=== PATIENT | female | born 1995 | race African-American/Black ===

== ENCOUNTER 2016-11-20 22:14 | Emergency (ER) | payer MEDICAID ==
[~2016-11-20] VITALS: Ht 175.3 cm; Wt 78.0 kg
[~2016-11-20 22:14] MED LIST: BACT800T5 PO; DOXY100C PO
[2016-11-20 22:16] VITALS: BP 125/72; PULSE 77; RESP 16; TEMP 97.4; O2SAT 100
--- NOTE | 2016-11-20 22:40 | PD ---
Physical Exam Date Seen by Provider: Nov 20, 2016 Time Seen by Provider: 22:38 Narrative 21 y/o female with one day Hx. Nausea and Vomiting. LMP 10-24-2016. Denies fever. No Diarrhea. Urine and POC preg ordered. Vital Signs reviewed. Patient is Stable and awaiting Bed Placement. Data Data Last Documented VS Vital Signs Date Time Temp Pulse Resp B/P (MAP) Pulse Ox O2 Delivery O2 Flow Rate FiO2 11/20/16 22:16 97.4 77 16 125/72 (89) 100 Orders Orders Urinalysis - C+S If Indicated (11/20/16 22:40) Ed Urine Pregnancytest Poc (11/20/16 22:40) MDM Medical Record Reviewed: Yes Supervised Visit with ANTONIO: Yes Condition: Stable Feng Draper Nov 20, 2016 22:40
[2016-11-20] MEDS ORDERED: SODIUM CHLOR 0.9% 1000 ML INJ 1,000 ML IV SCH (22:58)
[2016-11-20] MEDS ORDERED: MORPHINE SULFATE 4 MG/ML INJ IV PUSH ONE (23:00)
[2016-11-20] MEDS ORDERED: SODIUM CHLORIDE 0.9% FLUSH 10 ML FLUSH IV FLUSH PRN (23:00)
[2016-11-20] MEDS ORDERED: DICYCLOMINE HCL 10 MG CAP PO ONE (23:00)
[2016-11-20] MEDS ORDERED: ONDANSETRON HCL 4 MG/2 ML VIAL IVP ONE (23:00)
--- NOTE | 2016-11-20 23:06 | PD ---
HPI Chief Complaint: GI Complaint Time Seen by Provider: 22:47 Travel History International Travel<30 days: No Contact w/Intl Traveler<30days: No Traveled to known affect area: No History of Present Illness HPI The patient is a 21-year-old Norah female who presents emergency department for nausea, vomiting, and abdominal cramping. The patient states her symptoms started at approximately 4 PM earlier today while she was eating chicken wings. The patient complains of nausea, vomiting, with a few episodes of loose and watery diarrhea. She also complains of lower abdominal cramping. The patient's last menstrual cycle was October 14, 2016, however, she does know some irregular spotting this month. She denies . She denies a current fever, chills, or sweats. Symptoms are moderate, there are no current alleviating or exacerbating factors. PFSH Past Medical History Medical History: Denies Significant Hx Diminished Hearing: No ?: Not LMP: 10/24/16 : 2 Para: 2 Past Surgical History Surgical History: No Previous Surgery Social History Alcohol Use: No Tobacco Use: No Substance Use: No Allergies-Medications (Allergen,Severity, Reaction): Coded Allergies: No Known Allergies (Unverified , 11/20/16) Reported Meds & Prescriptions Reported Meds & Active Scripts Active Bactrim DS (Sulfamethoxazole-Trimethoprim) 800-160 Mg Tab 1 Tab PO BID Doxycycline Hyclate 100 Mg Cap 100 Mg PO BID Review of Systems Except as stated in HPI: all other systems reviewed are Neg General / Constitutional: No: Fever Cardiovascular: No: Chest Pain or Discomfort Respiratory: No: Shortness of Breath Gastrointestinal: Positive: Nausea, Vomiting, Diarrhea, Abdominal Pain ( cramping) Genitourinary: No: Dysuria Neurologic: No: Dizziness Physical Exam Narrative GENERAL: Awake, alert, nontoxic-appearing 21-year-old female who appears her stated age and is in no acute respiratory distress. SKIN: Focused skin assessment warm/dry. HEAD: Atraumatic. Normocephalic. EYES: Pupils equal and round. No scleral icterus. No injection or drainage. ENT: No nasal bleeding or discharge. Mucous membranes pink and moist. NECK: Trachea midline. No JVD. CARDIOVASCULAR: Regular rate and rhythm. No murmur appreciated. RESPIRATORY: No accessory muscle use. Clear to auscultation. Breath sounds equal bilaterally. GASTROINTESTINAL: Abdomen soft, no rebound tenderness, guarding, rigidity. Negative McBurney's. Negative Nguyen's. MUSCULOSKELETAL: No obvious deformities. No clubbing. No cyanosis. No edema. NEUROLOGICAL: Awake and alert. No obvious cranial nerve deficits. Motor grossly within normal limits. Normal speech. PSYCHIATRIC: Appropriate mood and affect; insight and judgment normal. Data Data Last Documented VS Vital Signs Date Time Temp Pulse Resp B/P (MAP) Pulse Ox O2 Delivery O2 Flow Rate FiO2 11/20/16 23:41 66 18 111/67 (82) 100 Room Air 11/20/16 22:16 97.4 Orders Orders Urinalysis - C+S If Indicated (11/20/16 22:40) Ed Urine Pregnancytest Poc (11/20/16 22:40) Complete Blood Count With Diff (11/20/16 22:58) Comprehensive Metabolic Panel (11/20/16 22:58) Lipase (11/20/16 22:58) Iv Access Insert/Monitor (11/20/16 22:58) Ecg Monitoring (11/20/16 22:58) Oximetry (11/20/16 22:58) Morphine Inj (Morphine Inj) (11/20/16 23:00) Ondansetron Inj (Zofran Inj) (11/20/16 23:00) Sodium Chlor 0.9% 1000 Ml Inj (Ns 1000 M (11/20/16 22:58) Sodium Chloride 0.9% Flush (Ns Flush) (11/20/16 23:00) Dicyclomine (Bentyl) (11/20/16 23:00) Beta Hcg (Quant/Titer) (11/20/16 23:09) Labs Laboratory Tests Test 11/20/16 23:09 11/21/16 00:20 White Blood Count 10.3 TH/MM3 Red Blood Count 3.99 MIL/MM3 Hemoglobin 11.8 GM/DL Hematocrit 35.6 % Mean Corpuscular Volume 89.3 FL Mean Corpuscular Hemoglobin 29.5 PG Mean Corpuscular Hemoglobin Concent 33.1 % Red Cell Distribution Width 12.8 % Platelet Count 276 TH/MM3 Mean Platelet Volume 8.3 FL Neutrophils (%) (Auto) 46.1 % Lymphocytes (%) (Auto) 46.7 % Monocytes (%) (Auto) 5.9 % Eosinophils (%) (Auto) 0.7 % Basophils (%) (Auto) 0.6 % Neutrophils # (Auto) 4.7 TH/MM3 Lymphocytes # (Auto) 4.8 TH/MM3 Monocytes # (Auto) 0.6 TH/MM3 Eosinophils # (Auto) 0.1 TH/MM3 Basophils # (Auto) 0.1 TH/MM3 CBC Comment DIFF FINAL Differential Comment Blood Urea Nitrogen 6 MG/DL Creatinine 0.84 MG/DL Random Glucose 73 MG/DL Total Protein 7.6 GM/DL Albumin 3.8 GM/DL Calcium Level 9.1 MG/DL Alkaline Phosphatase 73 U/L Aspartate Amino Transf (AST/SGOT) 18 U/L Alanine Aminotransferase (ALT/SGPT) 17 U/L Total Bilirubin 0.4 MG/DL Sodium Level 138 MEQ/L Potassium Level 3.3 MEQ/L Chloride Level 107 MEQ/L Carbon Dioxide Level 23.9 MEQ/L Anion Gap 7 MEQ/L Estimat Glomerular Filtration Rate 104 ML/MIN Lipase 121 U/L Human Chorionic Gonadotropin, Quant 1636 MIU/ML Urine Color YELLOW Urine Turbidity HAZY Urine pH 6.5 Urine Specific [place] 1.034 Urine Protein TRACE mg/dL Urine Glucose (UA) TRACE mg/dL Urine Ketones NEG mg/dL Urine Occult Blood NEG Urine Nitrite NEG Urine Bilirubin NEG Urine Urobilinogen 4.0 MG/DL Urine Leukocyte Esterase MOD Urine RBC 6 /hpf Urine WBC 6 /hpf Urine Squamous Epithelial Cells 15 /hpf Urine Renal Epithelial Cells <1 /hpf Urine Calcium Oxalate Crystals OCC /hpf Urine Mucus FEW /lpf Microscopic Urinalysis Comment CULT NOT INDICATED MDM Medical Decision Making Medical Screen Exam Complete: Yes Emergency Medical Condition: Yes Medical Record Reviewed: Yes Interpretation(s) Laboratory Tests Test 11/20/16 23:09 11/21/16 00:20 White Blood Count 10.3 TH/MM3 Red Blood Count 3.99 MIL/MM3 Hemoglobin 11.8 GM/DL Hematocrit 35.6 % Mean Corpuscular Volume 89.3 FL Mean Corpuscular Hemoglobin 29.5 PG Mean Corpuscular Hemoglobin Concent 33.1 % Red Cell Distribution Width 12.8 % Platelet Count 276 TH/MM3 Mean Platelet Volume 8.3 FL Neutrophils (%) (Auto) 46.1 % Lymphocytes (%) (Auto) 46.7 % Monocytes (%) (Auto) 5.9 % Eosinophils (%) (Auto) 0.7 % Basophils (%) (Auto) 0.6 % Neutrophils # (Auto) 4.7 TH/MM3 Lymphocytes # (Auto) 4.8 TH/MM3 Monocytes # (Auto) 0.6 TH/MM3 Eosinophils # (Auto) 0.1 TH/MM3 Basophils # (Auto) 0.1 TH/MM3 CBC Comment DIFF FINAL Differential Comment Blood Urea Nitrogen 6 MG/DL Creatinine 0.84 MG/DL Random Glucose 73 MG/DL Total Protein 7.6 GM/DL Albumin 3.8 GM/DL Calcium Level 9.1 MG/DL Alkaline Phosphatase 73 U/L Aspartate Amino Transf (AST/SGOT) 18 U/L Alanine Aminotransferase (ALT/SGPT) 17 U/L Total Bilirubin 0.4 MG/DL Sodium Level 138 MEQ/L Potassium Level 3.3 MEQ/L Chloride Level 107 MEQ/L Carbon Dioxide Level 23.9 MEQ/L Anion Gap 7 MEQ/L Estimat Glomerular Filtration Rate 104 ML/MIN Lipase 121 U/L Human Chorionic Gonadotropin, Quant 1636 MIU/ML Urine Color YELLOW Urine Turbidity HAZY Urine pH 6.5 Urine Specific [place] 1.034 Urine Protein TRACE mg/dL Urine Glucose (UA) TRACE mg/dL Urine Ketones NEG mg/dL Urine Occult Blood NEG Urine Nitrite NEG Urine Bilirubin NEG Urine Urobilinogen 4.0 MG/DL Urine Leukocyte Esterase MOD Urine RBC 6 /hpf Urine WBC 6 /hpf Urine Squamous Epithelial Cells 15 /hpf Urine Renal Epithelial Cells <1 /hpf Urine Calcium Oxalate Crystals OCC /hpf Urine Mucus FEW /lpf Microscopic Urinalysis Comment CULT NOT INDICATED Differential Diagnosis Differential diagnosis includes gastroenteritis, gastritis, food poisoning, enteritis, colitis, , UTI, pancreatitis, hepatitis. Narrative Course IV was established, labs are drawn and sent, and the patient was placed on cardiac telemetry monitoring and continuous pulse oximetry monitoring. The patient was administered Zofran and IV fluids. Bedside UA test was obtained, was positive. Therefore, quantitative beta hCG was sent to lab. Beta hCG was positive, greater than 1000. Otherwise, labs are unremarkable. The patient is a , she has no current pain, I doubt ectopic . She is advised to take a vitamin daily, plenty of fluids to stay hydrated, Zofran as needed, to follow-up with her funds development director and/or primary physician. Diagnosis Primary Impression: Qualified Codes: Z34.90 - Encounter for supervision of normal , unspecified, unspecified trimester Additional Impression: Nausea & vomiting Qualified Codes: R11.2 - Nausea with vomiting, unspecified Patient Instructions: General Instructions Additional Instructions: Zofran as needed. Follow-up with your funds development director. Take a vitamin daily. Return if symptoms worsen or progress. Med/Other Pt SpecificInfo: Prescription(s) given Scripts Ondansetron Odt (Zofran Odt) 4 Mg Tab 4 MG SL Q6HR Y for Nausea/Vomiting, #10 TAB 0 Refills Prov: Michael Cm MD 11/21/16 Disposition: 01 DISCHARGE HOME Condition: Stable Michael Cm MD Nov 20, 2016 23:06
[2016-11-20 23:19] VITALS: O2SAT 100
[2016-11-20 23:38] LABS: AUTOMATED NEUTROPHIL # 4.7 TH/MM3 (1.8-7.7); BASOPHIL # 0.1 TH/MM3 (0-0.2); BASOPHIL % 0.6 % (0.0-2.0); EOSINOPHIL # 0.1 TH/MM3 (0-0.4); EOSINOPHIL % 0.7 % (0.0-4.0); HEMATOCRIT 35.6 % (35.0-46.0); HEMO FLAGS DIFF FINAL; LYMPH % 46.7 % (9.0-44.0); LYMPHOCYTE # 4.8 TH/MM3 (1.0-4.8); MEAN CELL VOLUME 89.3 FL (80.0-100.0); MEAN CORPUSCULAR HEMOGLOBIN 29.5 PG (27.0-34.0); MEAN CORPUSCULAR HGB CONC 33.1 % (32.0-36.0); MONO % 5.9 % (0.0-8.0); NEUT % 46.1 % (16.0-70.0); PLATELET COUNT 276 TH/MM3 (150-450); RED BLOOD COUNT 3.99 MIL/MM3 (4.00-5.30); RED CELL DISTRIBUTION WIDTH 12.8 % (11.6-17.2); WHITE BLOOD COUNT 10.3 TH/MM3 (4.0-11.0)
[2016-11-20 23:41] VITALS: BP 111/67; PULSE 66; RESP 18; O2SAT 100
[2016-11-21 00:14] LABS: ANION GAP 7 MEQ/L (5-15); AST (GOT) 18 U/L (15-37); BICARBONATE 23.9 MEQ/L (21.0-32.0); BLOOD UREA NITROGEN 6 MG/DL (7-18); CHLORIDE 107 MEQ/L (98-107); GLOMERULAR FILTRATION RATE 104 ML/MIN (>89); POTASSIUM 3.3 MEQ/L (3.5-5.1); SODIUM (NA) 138 MEQ/L (136-145)
[2016-11-21 00:28] LABS: ALKALINE PHOSPHATASE 73 U/L (45-117); ALT (GPT) 17 U/L (10-53); BETA HCG QUANT 1636 MIU/ML (0-5); TOTAL BILIRUBIN ADULT 0.4 MG/DL (0.2-1.0)
[2016-11-21 00:37] LABS: BLOOD, URINE NEG (NEG); CALCIUM OXALATE CRYSTALS,URINE OCC /hpf; GLUCOSE,URINE TRACE mg/dL (NEG); KETONE, URINE NEG (NEG); MUCUS URINE FEW /lpf (OCC); NITRITE,URINE NEG (NEG); PH, URINE 6.5 (5.0-8.5); RENAL EPITHELIAL CELLS <1 /hpf; SQUAMOUS EPITHELIAL CELL URINE 15 /hpf (0-5); URINE COLOR YELLOW (YELLW/STRAW)
[2016-11-21 00:49] LABS: COMMENT (UR) CULT NOT INDICATED; CULTURE IF INDICATED CULT NOT INDICATED
[2016-11-21] MEDS ORDERED: ZOFR4TAB3 SL (01:03)
== END 2016-11-21 01:31 | disposition home or self-care (01) ==
LOC: NEPE 22:14
DX: R11.2 Nausea with vomiting, unspecified (principal); R10.9 Unspecified abdominal pain
CPT/HCPCS: 80053; 81001; 83690; 84702; 84703; 85025; 96374; 99284; J2405; J7030

== ENCOUNTER 2017-01-25 15:51 | Emergency (ER) | payer MEDICAID ==
[~2017-01-25] VITALS: Ht 175.3 cm; Wt 72.0 kg
[~2017-01-25 15:51] MED LIST changes: +ZOFR4TAB3 SL
[2017-01-25 15:55] VITALS: BP 122/66; PULSE 84; RESP 16; TEMP 97.9; O2SAT 98
[2017-01-25 16:56] LABS: BILIRUBIN, URINE NEG (NEG); BLOOD, URINE NEG (NEG); GLUCOSE,URINE TRACE mg/dL (NEG); KETONE, URINE NEG (NEG); MUCUS URINE FEW /lpf (OCC); NITRITE,URINE NEG (NEG); SQUAMOUS EPITHELIAL CELL URINE 4 /hpf (0-5); URINE COLOR YELLOW (YELLW/STRAW); URINE LEUKOCYTE ESTERASE NEG (NEG)
--- NOTE | 2017-01-25 17:19 | PD ---
HPI Chief Complaint: Abdominal Pain Time Seen by Provider: 16:16 Travel History International Travel<30 days: No Contact w/Intl Traveler<30days: No Traveled to known affect area: No History of Present Illness HPI 22-year-old female presents to the emergency Department with complaint of foul-smelling vaginal odor times one week. Last menstrual period was around October 14. She doesn't know how far along she is. She has not followed up with public improvement inspector. Reports 2 days of vaginal bleeding one week ago. Denies vaginal bleeding at this time. Reports some vaginal itching. Denies vaginal lesions. Reports abdominal cramping and low back pain. Denies dysuria, urgency, frequency, hematuria. Denies diarrhea. Denies fevers. Reports vomiting throughout the . Planned on having an in the beginning but has no plan to abort at this time. This is her third and she has 2 living children. Has taken Tylenol for symptom management. Symptoms are moderate in severity. Unknown exposure to any STI/STDs. No known allergies. Denies past medical history. Denies current medications. Has no other medical complaints. No other modifying factors or associated signs and symptoms. [facility] Past Medical History Medical History: Denies Significant Hx Diminished Hearing: No ?: LMP: AUGUST 2016 : 2 Para: 2 Past Surgical History Surgical History: No Previous Surgery Social History Alcohol Use: No Tobacco Use: No Substance Use: No Allergies-Medications (Allergen,Severity, Reaction): Coded Allergies: No Known Allergies (Unverified , 01/25/17) Reported Meds & Prescriptions Reported Meds & Active Scripts Active Review of Systems Except as stated in HPI: all other systems reviewed are Neg Physical Exam Narrative GENERAL: Well-nourished, well-developed black female female patient, in no acute distress; afebrile, nontoxic-appearing SKIN: Warm and dry. HEAD: Atraumatic. Normocephalic. EYES: Pupils equal and round. No scleral icterus. No injection or drainage. ENT: Mucous membranes pink and moist. NECK: Trachea midline. No lymphadenopathy. CARDIOVASCULAR: Regular rate. RESPIRATORY: No accessory muscle use. GASTROINTESTINAL: Abdomen soft, non-tender, nondistended. Bilateral pelvic region nontender to palpation. Hepatic and splenic margins not palpable. No guarding, rigidity, rebound tenderness. PELVIC: Exam done in the presence of a nurse. Speculum exam reveals edematous and erythematous cervix with foul smelling mucopurulent, white cottage-cheese discharge. Bimanual exam reveals no palpable masses or adnexa tenderness, no uterine tenderness. Positive cervical motion tenderness. MUSCULOSKELETAL: No obvious deformities. No clubbing. No cyanosis. No edema. NEUROLOGICAL: Awake and alert. No obvious cranial nerve deficits. Motor grossly within normal limits. Normal speech. PSYCHIATRIC: Appropriate mood and affect; insight and judgment normal. Data Data Last Documented VS Vital Signs Date Time Temp Pulse Resp B/P (MAP) Pulse Ox O2 Delivery O2 Flow Rate FiO2 01/25/17 18:00 80 14 120/54 (76) 97 Room Air 01/25/17 15:55 97.9 Orders Orders Urinalysis - C+S If Indicated (01/25/17 16:10) Ed Urine Pregnancytest Poc (01/25/17 16:10) Gc And Chlamydia Pcr (01/25/17 16:16) Wet Prep Profile (01/25/17 16:16) Beta Hcg (Quant/Titer) (01/25/17 17:19) Acetaminophen (Tylenol) (01/25/17 17:30) Heart Tones (01/25/17 18:01) Azithromycin Powd Pack (Zithromax Powd P (01/25/17 18:30) Ceftriaxone Inj (Rocephin Inj) (01/25/17 18:30) Lidocaine 1% Inj (50 Ml) (Xylocaine 1% I (01/25/17 18:30) Ondansetron Odt (Zofran Odt) (01/25/17 18:45) Iv Access Insert/Monitor (01/25/17 19:07) Sodium Chloride 0.9% Flush (Ns Flush) (01/25/17 19:15) Azithromycin Inj (Zithromax Inj) (01/25/17 19:15) Ed Discharge Order (01/25/17 19:11) Azithromycin (Zithromax) (01/25/17 19:15) Labs Laboratory Tests Test 01/25/17 16:40 01/25/17 17:05 Urine Color YELLOW Urine Turbidity CLEAR Urine pH 6.0 Urine Specific [place] 1.028 Urine Protein TRACE mg/dL Urine Glucose (UA) TRACE mg/dL Urine Ketones NEG mg/dL Urine Occult Blood NEG Urine Nitrite NEG Urine Bilirubin NEG Urine Urobilinogen 2.0 MG/DL Urine Leukocyte Esterase NEG Urine RBC LESS THAN 1 /hpf Urine WBC 1 /hpf Urine Squamous Epithelial Cells 4 /hpf Urine Mucus FEW /lpf Microscopic Urinalysis Comment CULT NOT INDICATED Human Chorionic Gonadotropin, Quant 32076 MIU/ML Clue Cells (Wet Prep) NONE SEEN Vaginal Trichomonas (Wet Prep) NONE SEEN Vaginal Yeast (Wet Prep) NONE SEEN MDM Medical Decision Making Medical Screen Exam Complete: Yes Emergency Medical Condition: Yes Medical Record Reviewed: Yes Differential Diagnosis Chlamydia, gonorrhea, Trichomonas, bacterial vaginosis, vaginal yeast Narrative Course 22-year-old female, approximately 13 weeks , physical exam consistent with foul-smelling vaginal discharge and cervicitis. UPT positive. 1822: heart tones 154. HCG 18424. 183: Azithromycin and Rocephin ordered for empirical treatment of cervicitis. 1842: Urinalysis with no signs of infection. Negative for clue cells, vaginal yeast, trichomoniasis. Patient vomiting the azithromycin. Zofran ordered. 1908: Dr. Munoz recommended a dose of azithromycin IV. Azithromycin IV ordered. Patient refused IV azithromycin. Azithromycin 1000 mg tabs by mouth ordered. Instructed patient to follow up public improvement inspector. Instructed patient to follow up with primary care provider. Patient verbalizes understanding and agreement with treatment plan. Patient is medically cleared and stable for discharge. Discussed reasons to return to the emergency department. Patient agrees with treatment plan. The patients vital signs are stable and the patient is stable for outpatient follow-up and treatment. Patient discharged home, stable and in no acute distress. Diagnosis Primary Impression: Qualified Codes: Z3A.13 - 13 weeks gestation of Additional Impression: Cervicitis Referrals: [facility] Primary Care Physician Patient Instructions: Cervicitis (ED), Chlamydia (ED), General Instructions, Gonorrhea (ED), (DC) Additional Instructions: Avoid sexual activity for 14 days and until your sexual partner has been evaluated and treated Inform all sexual partners within the past 3-6 months that they need to be evaluated and treated Use condoms every time you have sex Follow-up with primary care provider Follow up with public improvement inspector Return to the emergency department immediately with worsening of symptoms Med/Other Pt SpecificInfo: No Meds Exist/No RX given Disposition: DISCHARGE HOME Condition: Stable Rassi,Suzy K DOUGH MIXING MACHINE OPERATOR Jan 25, 2017 17:18
--- NOTE | 2017-01-25 17:19 | PD ---
HPI Chief Complaint: Abdominal Pain Time Seen by Provider: 16:16 Travel History International Travel<30 days: No Contact w/Intl Traveler<30days: No Traveled to known affect area: No History of Present Illness HPI 22-year-old female presents to the emergency Department with complaint of foul-smelling vaginal odor times one week. Last menstrual period was around October 14. She doesn't know how far along she is. She has not followed up with diver pumper. Reports 2 days of vaginal bleeding one week ago. Denies vaginal bleeding at this time. Reports some vaginal itching. Denies vaginal lesions. Reports abdominal cramping and low back pain. Denies dysuria, urgency, frequency, hematuria. Denies diarrhea. Denies fevers. Reports vomiting throughout the . Planned on having an in the beginning but has no plan to abort at this time. This is her third and she has 2 living children. Has taken Tylenol for symptom management. Symptoms are moderate in severity. Unknown exposure to any STI/STDs. No known allergies. Denies past medical history. Denies current medications. Has no other medical complaints. No other modifying factors or associated signs and symptoms. [facility] Past Medical History Medical History: Denies Significant Hx Diminished Hearing: No ?: LMP: AUGUST 2016 : 2 Para: 2 Past Surgical History Surgical History: No Previous Surgery Social History Alcohol Use: No Tobacco Use: No Substance Use: No Allergies-Medications (Allergen,Severity, Reaction): Coded Allergies: No Known Allergies (Unverified , 01/25/17) Reported Meds & Prescriptions Reported Meds & Active Scripts Active Review of Systems Except as stated in HPI: all other systems reviewed are Neg Physical Exam Narrative GENERAL: Well-nourished, well-developed black female female patient, in no acute distress; afebrile, nontoxic-appearing SKIN: Warm and dry. HEAD: Atraumatic. Normocephalic. EYES: Pupils equal and round. No scleral icterus. No injection or drainage. ENT: Mucous membranes pink and moist. NECK: Trachea midline. No lymphadenopathy. CARDIOVASCULAR: Regular rate. RESPIRATORY: No accessory muscle use. GASTROINTESTINAL: Abdomen soft, non-tender, nondistended. Bilateral pelvic region nontender to palpation. Hepatic and splenic margins not palpable. No guarding, rigidity, rebound tenderness. PELVIC: Exam done in the presence of a nurse. Speculum exam reveals edematous and erythematous cervix with foul smelling mucopurulent, white cottage-cheese discharge. Bimanual exam reveals no palpable masses or adnexa tenderness, no uterine tenderness. Positive cervical motion tenderness. MUSCULOSKELETAL: No obvious deformities. No clubbing. No cyanosis. No edema. NEUROLOGICAL: Awake and alert. No obvious cranial nerve deficits. Motor grossly within normal limits. Normal speech. PSYCHIATRIC: Appropriate mood and affect; insight and judgment normal. Data Data Last Documented VS Vital Signs Date Time Temp Pulse Resp B/P (MAP) Pulse Ox O2 Delivery O2 Flow Rate FiO2 01/25/17 18:00 80 14 120/54 (76) 97 Room Air 01/25/17 15:55 97.9 Orders Orders Urinalysis - C+S If Indicated (01/25/17 16:10) Ed Urine Pregnancytest Poc (01/25/17 16:10) Gc And Chlamydia Pcr (01/25/17 16:16) Wet Prep Profile (01/25/17 16:16) Beta Hcg (Quant/Titer) (01/25/17 17:19) Acetaminophen (Tylenol) (01/25/17 17:30) Heart Tones (01/25/17 18:01) Azithromycin Powd Pack (Zithromax Powd P (01/25/17 18:30) Ceftriaxone Inj (Rocephin Inj) (01/25/17 18:30) Lidocaine 1% Inj (50 Ml) (Xylocaine 1% I (01/25/17 18:30) Ondansetron Odt (Zofran Odt) (01/25/17 18:45) Iv Access Insert/Monitor (01/25/17 19:07) Sodium Chloride 0.9% Flush (Ns Flush) (01/25/17 19:15) Azithromycin Inj (Zithromax Inj) (01/25/17 19:15) Ed Discharge Order (01/25/17 19:11) Azithromycin (Zithromax) (01/25/17 19:15) Labs Laboratory Tests Test 01/25/17 16:40 01/25/17 17:05 Urine Color YELLOW Urine Turbidity CLEAR Urine pH 6.0 Urine Specific [place] 1.028 Urine Protein TRACE mg/dL Urine Glucose (UA) TRACE mg/dL Urine Ketones NEG mg/dL Urine Occult Blood NEG Urine Nitrite NEG Urine Bilirubin NEG Urine Urobilinogen 2.0 MG/DL Urine Leukocyte Esterase NEG Urine RBC LESS THAN 1 /hpf Urine WBC 1 /hpf Urine Squamous Epithelial Cells 4 /hpf Urine Mucus FEW /lpf Microscopic Urinalysis Comment CULT NOT INDICATED Human Chorionic Gonadotropin, Quant 38340 MIU/ML Clue Cells (Wet Prep) NONE SEEN Vaginal Trichomonas (Wet Prep) NONE SEEN Vaginal Yeast (Wet Prep) NONE SEEN MDM Medical Decision Making Medical Screen Exam Complete: Yes Emergency Medical Condition: Yes Medical Record Reviewed: Yes Differential Diagnosis Chlamydia, gonorrhea, Trichomonas, bacterial vaginosis, vaginal yeast Narrative Course 22-year-old female, approximately 13 weeks , physical exam consistent with foul-smelling vaginal discharge and cervicitis. UPT positive. 1822: heart tones 154. HCG 40171. 183: Azithromycin and Rocephin ordered for empirical treatment of cervicitis. 1842: Urinalysis with no signs of infection. Negative for clue cells, vaginal yeast, trichomoniasis. Patient vomiting the azithromycin. Zofran ordered. 1908: Dr. Munoz recommended a dose of azithromycin IV. Azithromycin IV ordered. Patient refused IV azithromycin. Azithromycin 1000 mg tabs by mouth ordered. Instructed patient to follow up diver pumper. Instructed patient to follow up with primary care provider. Patient verbalizes understanding and agreement with treatment plan. Patient is medically cleared and stable for discharge. Discussed reasons to return to the emergency department. Patient agrees with treatment plan. The patients vital signs are stable and the patient is stable for outpatient follow-up and treatment. Patient discharged home, stable and in no acute distress. Diagnosis Primary Impression: Qualified Codes: Z3A.13 - 13 weeks gestation of Additional Impression: Cervicitis Referrals: [facility] Primary Care Physician Patient Instructions: Cervicitis (ED), Chlamydia (ED), General Instructions, Gonorrhea (ED), (DC) Additional Instructions: Avoid sexual activity for 14 days and until your sexual partner has been evaluated and treated Inform all sexual partners within the past 3-6 months that they need to be evaluated and treated Use condoms every time you have sex Follow-up with primary care provider Follow up with diver pumper Return to the emergency department immediately with worsening of symptoms Med/Other Pt SpecificInfo: No Meds Exist/No RX given Disposition: DISCHARGE HOME Condition: Stable Rassi,Suzy K STEAM DRIER OPERATOR Jan 25, 2017 17:18
--- NOTE | 2017-01-25 17:19 | PD ---
HPI Chief Complaint: Abdominal Pain Time Seen by Provider: 16:16 Travel History International Travel<30 days: No Contact w/Intl Traveler<30days: No Traveled to known affect area: No History of Present Illness HPI 22-year-old female presents to the emergency Department with complaint of foul-smelling vaginal odor times one week. Last menstrual period was around October 14. She doesn't know how far along she is. She has not followed up with retort cooler. Reports 2 days of vaginal bleeding one week ago. Denies vaginal bleeding at this time. Reports some vaginal itching. Denies vaginal lesions. Reports abdominal cramping and low back pain. Denies dysuria, urgency, frequency, hematuria. Denies diarrhea. Denies fevers. Reports vomiting throughout the . Planned on having an in the beginning but has no plan to abort at this time. This is her third and she has 2 living children. Has taken Tylenol for symptom management. Symptoms are moderate in severity. Unknown exposure to any STI/STDs. No known allergies. Denies past medical history. Denies current medications. Has no other medical complaints. No other modifying factors or associated signs and symptoms. [facility] Past Medical History Medical History: Denies Significant Hx Diminished Hearing: No ?: LMP: AUGUST 2016 : 2 Para: 2 Past Surgical History Surgical History: No Previous Surgery Social History Alcohol Use: No Tobacco Use: No Substance Use: No Allergies-Medications (Allergen,Severity, Reaction): Coded Allergies: No Known Allergies (Unverified , 01/25/17) Reported Meds & Prescriptions Reported Meds & Active Scripts Active Review of Systems Except as stated in HPI: all other systems reviewed are Neg Physical Exam Narrative GENERAL: Well-nourished, well-developed black female female patient, in no acute distress; afebrile, nontoxic-appearing SKIN: Warm and dry. HEAD: Atraumatic. Normocephalic. EYES: Pupils equal and round. No scleral icterus. No injection or drainage. ENT: Mucous membranes pink and moist. NECK: Trachea midline. No lymphadenopathy. CARDIOVASCULAR: Regular rate. RESPIRATORY: No accessory muscle use. GASTROINTESTINAL: Abdomen soft, non-tender, nondistended. Bilateral pelvic region nontender to palpation. Hepatic and splenic margins not palpable. No guarding, rigidity, rebound tenderness. PELVIC: Exam done in the presence of a nurse. Speculum exam reveals edematous and erythematous cervix with foul smelling mucopurulent, white cottage-cheese discharge. Bimanual exam reveals no palpable masses or adnexa tenderness, no uterine tenderness. Positive cervical motion tenderness. MUSCULOSKELETAL: No obvious deformities. No clubbing. No cyanosis. No edema. NEUROLOGICAL: Awake and alert. No obvious cranial nerve deficits. Motor grossly within normal limits. Normal speech. PSYCHIATRIC: Appropriate mood and affect; insight and judgment normal. Data Data Last Documented VS Vital Signs Date Time Temp Pulse Resp B/P (MAP) Pulse Ox O2 Delivery O2 Flow Rate FiO2 01/25/17 18:00 80 14 120/54 (76) 97 Room Air 01/25/17 15:55 97.9 Orders Orders Urinalysis - C+S If Indicated (01/25/17 16:10) Ed Urine Pregnancytest Poc (01/25/17 16:10) Gc And Chlamydia Pcr (01/25/17 16:16) Wet Prep Profile (01/25/17 16:16) Beta Hcg (Quant/Titer) (01/25/17 17:19) Acetaminophen (Tylenol) (01/25/17 17:30) Heart Tones (01/25/17 18:01) Azithromycin Powd Pack (Zithromax Powd P (01/25/17 18:30) Ceftriaxone Inj (Rocephin Inj) (01/25/17 18:30) Lidocaine 1% Inj (50 Ml) (Xylocaine 1% I (01/25/17 18:30) Ondansetron Odt (Zofran Odt) (01/25/17 18:45) Iv Access Insert/Monitor (01/25/17 19:07) Sodium Chloride 0.9% Flush (Ns Flush) (01/25/17 19:15) Azithromycin Inj (Zithromax Inj) (01/25/17 19:15) Ed Discharge Order (01/25/17 19:11) Azithromycin (Zithromax) (01/25/17 19:15) Labs Laboratory Tests Test 01/25/17 16:40 01/25/17 17:05 Urine Color YELLOW Urine Turbidity CLEAR Urine pH 6.0 Urine Specific Riparius 1.028 Urine Protein TRACE mg/dL Urine Glucose (UA) TRACE mg/dL Urine Ketones NEG mg/dL Urine Occult Blood NEG Urine Nitrite NEG Urine Bilirubin NEG Urine Urobilinogen 2.0 MG/DL Urine Leukocyte Esterase NEG Urine RBC LESS THAN 1 /hpf Urine WBC 1 /hpf Urine Squamous Epithelial Cells 4 /hpf Urine Mucus FEW /lpf Microscopic Urinalysis Comment CULT NOT INDICATED Human Chorionic Gonadotropin, Quant 56747 MIU/ML Clue Cells (Wet Prep) NONE SEEN Vaginal Trichomonas (Wet Prep) NONE SEEN Vaginal Yeast (Wet Prep) NONE SEEN MDM Medical Decision Making Medical Screen Exam Complete: Yes Emergency Medical Condition: Yes Medical Record Reviewed: Yes Differential Diagnosis Chlamydia, gonorrhea, Trichomonas, bacterial vaginosis, vaginal yeast Narrative Course 22-year-old female, approximately 13 weeks , physical exam consistent with foul-smelling vaginal discharge and cervicitis. UPT positive. 1822: heart tones 154. HCG 56802. 183: Azithromycin and Rocephin ordered for empirical treatment of cervicitis. 1842: Urinalysis with no signs of infection. Negative for clue cells, vaginal yeast, trichomoniasis. Patient vomiting the azithromycin. Zofran ordered. 1908: Dr. Munoz recommended a dose of azithromycin IV. Azithromycin IV ordered. Patient refused IV azithromycin. Azithromycin 1000 mg tabs by mouth ordered. Instructed patient to follow up retort cooler. Instructed patient to follow up with primary care provider. Patient verbalizes understanding and agreement with treatment plan. Patient is medically cleared and stable for discharge. Discussed reasons to return to the emergency department. Patient agrees with treatment plan. The patients vital signs are stable and the patient is stable for outpatient follow-up and treatment. Patient discharged home, stable and in no acute distress. Diagnosis Primary Impression: Qualified Codes: Z3A.13 - 13 weeks gestation of Additional Impression: Cervicitis Referrals: [facility] Primary Care Physician Patient Instructions: Cervicitis (ED), Chlamydia (ED), General Instructions, Gonorrhea (ED), (DC) Additional Instructions: Avoid sexual activity for 14 days and until your sexual partner has been evaluated and treated Inform all sexual partners within the past 3-6 months that they need to be evaluated and treated Use condoms every time you have sex Follow-up with primary care provider Follow up with retort cooler Return to the emergency department immediately with worsening of symptoms Med/Other Pt SpecificInfo: No Meds Exist/No RX given Disposition: DISCHARGE HOME Condition: Stable Rassi,Suzy K [employer] Jan 25, 2017 17:18
[2017-01-25] MEDS ORDERED: ACETAMINOPHEN 325 MG TAB PO ONE ×2 (17:30)
[2017-01-25 18:00] VITALS: BP 120/54; PULSE 80; RESP 14; O2SAT 97
[2017-01-25] MEDS ORDERED: cefTRIAXone 250 MG VIAL IM ONE ×2 (18:30)
[2017-01-25] MEDS ORDERED: LIDOCAINE HCL 1% 50 ML VIAL IM ONE ×2 (18:30)
[2017-01-25] MEDS ORDERED: AZITHROMYCIN PWD FOR SUSP 1 GM PACKET PO ONE ×2 (18:30)
[2017-01-25] MEDS ORDERED: ONDANSETRON ODT 4 MG TAB PO ONE ×2 (18:45)
[2017-01-25] MEDS ORDERED: SODIUM CHLORIDE 0.9% FLUSH 10 ML FLUSH IV FLUSH PRN ×2 (19:15)
[2017-01-25] MEDS ORDERED: AZITHROMYCIN 250 MG TAB PO ONE ×2 (19:15)
[2017-01-25] MEDS ORDERED: AZITHROMYCIN INJ 500 MG in SODIUM CHLOR 0.9% 250 ML INJ 250 ML IV ONE ×4 (19:15)
== END 2017-01-25 19:39 | disposition home or self-care (01) ==
LOC: NEPD 15:51
DX: O23.511 Infections of cervix in pregnancy, first trimester (principal); Z3A.13 13 weeks gestation of pregnancy
CPT/HCPCS: 81001; 84702; 84703; 87210; 87491; 87591; 96372; 99284; J0696

== ENCOUNTER 2017-02-11 15:06 | Emergency (ER) | payer MEDICAID ==
[2017-02-11 15:12] VITALS: BP 129/69; PULSE 90; RESP 12; TEMP 98.2; O2SAT 99
--- NOTE | 2017-02-11 16:45 | PD ---
HPI Chief Complaint Cramping Date Seen: Feb 11, 2017 Time Seen: 16:40 Travel History International Travel<30 Days: No Contact w/Intl Traveler<30Days: No Known Affected Area: No History of Present Illness HPI 22-year-old 3 para 2 at 17 weeks by last menstrual period who comes with report of intermittent cramping over the past couple of weeks. She denies any dysuria hematuria or frequency no vaginal discharge or bleeding. She has not had any care. Last Menstrual Period: Oct 14, 2016 History Obstetric History Obstetric History 2 prior vaginal deliveries Past Surgical History Surgical History: No Previous Surgery Family History Family History: Negative Social History Alcohol Use: No Tobacco Use: No Substance Abuse: No Allergies-Medications (Allergen,Severity, Reaction): Coded Allergies: No Known Allergies (Unverified Allergy, Unknown, 02/11/17) latex (Verified Allergy, Unknown, 02/11/17) Review of Systems Except as stated in HPI: all other systems reviewed are Neg Physical Exam Vital Signs Date Time Temp Pulse Resp B/P (MAP) Pulse Ox O2 Delivery O2 Flow Rate FiO2 02/11/17 15:12 98.2 90 12 129/69 (89) 99 Narrative GENERAL: Well-nourished, well-developed patient. SKIN: Warm and dry. HEAD: Normocephalic and atraumatic. EYES: No scleral icterus. No injection or drainage. ENT: No nasal drainage noted. Mucous membranes pink. Airway patent. NECK: Supple, trachea midline. No JVD. CARDIOVASCULAR: Regular rate and rhythm without murmurs, gallops, or rubs. RESPIRATORY: Breath sounds equal bilaterally. No accessory muscle use. BREASTS: Bilateral exam showed no masses , no retractions, no nipple discharge. ABDOMEN/GI: Abdomen soft, non-tender, bowel sounds present, no rebound, no guarding Gravid to [-] weeks size Fundal Height: [-] GENITOURINARY: External Genitalia: intact and normal in appearance, the uterus is 12-14 weeks size BUS glands: [-Negative] Cervix: [-] Dilatation: [Closed-] Effacement: [-Long] Station: [-] Presentation: [-] Membranes: [intact or ruptured] Uterine Contractions: [None] FHT's: Category: [-] Baseline: [-140s] Reactive: [-] Variability: [-] Decels: [-] EXTREMITIES: No cyanosis or edema. BACK: Nontender without obvious deformity. No CVA tenderness. NEUROLOGICAL: Awake and alert. Motor and sensory grossly within normal limits. Five out of 5 muscle strength in all muscle groups. Normal speech. Data Data Vital Signs Reviewed: Yes MDM Medical Record Reviewed: Yes Narrative Course / MDM Assessment: 22-year-old multipara at 17 weeks by last menstrual period the less than that by bimanual examination with cramping. Plan: She was given information for care for women to enroll in care. I instructed her that I suspect she is not 17 weeks as suggested by last menstrual. Diagnosis Diagnosis: Primary Impression: 17 weeks gestation of Disposition: DISCHARGE HOME Condition: Good Edi Shell MD Feb 11, 2017 16:45
[2017-02-11 19:17] LABS: CHLAMYDIA PCR NOT DETECTED (NOT DETECT); NEISSERIA PCR NOT DETECTED (NOT DETECT)
== END 2017-02-11 17:02 | disposition home or self-care (01) ==
LOC: HOBED 15:06
DX: O26.892 Other specified pregnancy related conditions, second trimester (principal); R10.9 Unspecified abdominal pain; O09.32 Supervision of pregnancy with insufficient antenatal care, second trimester; Z3A.17 17 weeks gestation of pregnancy
CPT/HCPCS: 87491; 87591; 99283

== ENCOUNTER 2017-05-08 15:43 | Emergency (ER) | payer MEDICAID ==
--- NOTE | 2017-05-08 16:53 | PD ---
HPI Chief Complaint vaginal pain/pressure Date Seen: May 08, 2017 Time Seen: 16:15 (Yareli Worrell MD R1) Travel History International Travel<30 Days: No Contact w/Intl Traveler<30Days: No Known Affected Area: No (Yareli Worrell MD R1) History of Present Illness HPI Ms. Coley is a 22 year old at 29/3 weeks gestation presenting today to come to concerns about vaginal pain and pressure. She states that this started this morning. She is also concerned that she might be leaking amniotic fluid. She states that the past 3 days she's been having to change her underwear 2-3 times a day due to them being soaked for floated. When she wiped after she urinated she had "brownish goo" on the tissue. No other complaints. No contractions, no dysuria, no vaginal bleeding. Positive movement. Weeks Gestation: 29 Para: 2 : 3 (Yareli Worrell MD R1) History Past Medical History Medical History: Denies Significant Hx (Yareli Worrell MD) Obstetric History Obstetric History Previous 2 pregnancies were via , term deliveries History of chlamydia infection Unsure of what control she wants to use after delivery (Yareli Worrell MD R1) Past Surgical History Surgical History: No Previous Surgery (Yareli Worrell MD) Family History Family History: Negative (Yareli Worrell MD) Social History Narrative Social History Lives with her mother and children Works at [employer] No alcohol or tobacco use States that she smokes 3-4 blunts of marijuana every day Substance Abuse: Yes (Yareli Worrell MD R1) Allergies-Medications (Allergen,Severity, Reaction): Coded Allergies: No Known Allergies (Unverified Allergy, Unknown, 02/11/17) latex (Verified Allergy, Unknown, 02/11/17) Review of Systems General / Constitutional: No: Fever, Chills Eyes: No: Blurred Vision HENT: No: Headaches Cardiovascular: No: Chest Pain or Discomfort, Palpitations Respiratory: No: Cough, Short of Breath Gastrointestinal: No: Nausea Genitourinary: No: Dysuria Skin: No Rash Neurologic: No: Weakness, Dizziness (Yareli Worrell MD R1) Physical Exam Narrative GENERAL: Well-nourished, well-developed patient. SKIN: Warm and dry. HEAD: Normocephalic and atraumatic. EYES: No scleral icterus. No injection or drainage. ENT: No nasal drainage noted. Mucous membranes pink. Airway patent. NECK: Supple, trachea midline. No JVD. CARDIOVASCULAR: Regular rate and rhythm without murmurs, gallops, or rubs. RESPIRATORY: Breath sounds equal bilaterally. No accessory muscle use. BREASTS: Bilateral exam showed no masses , no retractions, no nipple discharge. ABDOMEN/GI: Abdomen soft, non-tender, bowel sounds present, no rebound, no guarding Gravid to 29 weeks size FHT's: Category: 1 Baseline: 150s Reactive: yes Variability: moderate Decels: none EXTREMITIES: No cyanosis or edema. BACK: Nontender without obvious deformity. No CVA tenderness. NEUROLOGICAL: Awake and alert. Motor and sensory grossly within normal limits. Five out of 5 muscle strength in all muscle groups. Normal speech. (Yareli Worrell MD R1) Data Data Vital Signs Reviewed: Yes Orders Orders Vital Signs (Adult) .ON ADMISSION (05/08/17 16:43) ^ Labor Status (05/08/17 16:43) ^ Non Stress Test (05/08/17 16:43) Ed Discharge Order (05/08/17 16:44) (Yareli Worrell MD R1) MDM Plan 22-year-old at 29/3 with vaginal pain and pressure. -Amnisure test is negative Reassured patient that she is not having leakage of fluid at this time, that she may be leaking urine - heart tracing is reassuring showing category 1 strip -Advised patient that the pain/pressure that she is feeling his normal in -Encouraged her to discontinue marijuana use -Encouraged her to continue with her labs such as glucose tolerance testing and taking vitamins (Yareli Worrell MD R1) Attending Attestation I saw and evaluated patient with the resident and performed all roger decision making. No evidence of PPROM or PTL. Reassuring testing. Strict PPROM and PTL precautions, [facility] daily. [facility] (Ani Akins MD) Diagnosis Diagnosis: Primary Impression: 29 weeks gestation of Disposition: DISCHARGE HOME Condition: Stable Yareli Worrell MD R1 May 08, 2017 16:53 Ani Akisn MD May 21, 2017 14:04
== END 2017-05-08 17:15 | disposition home or self-care (01) ==
LOC: HOBED 15:43
DX: O26.893 Other specified pregnancy related conditions, third trimester (principal); R10.2 Pelvic and perineal pain; O99.323 Drug use complicating pregnancy, third trimester; F12.90 Cannabis use, unspecified, uncomplicated; Z3A.29 29 weeks gestation of pregnancy
CPT/HCPCS: 84112; 99283